=== PATIENT | male | born 1940 | race Caucasian/White ===

== ENCOUNTER 2017-09-21 09:34 | Day surgery (SDC) | payer MEDICARE ==
[~2017-09-21] VITALS: Ht 167.6 cm; Wt 81.8 kg
[~2017-09-21 09:34] MED LIST: HEPARIN 1,000 UNITS/ML, 10ML ONE; PROTAMINE SULFATE 10 MG/ML, 5ML ONE
[2017-09-21] MEDS ORDERED: SODIUM CHLORIDE 0.9% 1,000 ML IV SCH (10:19)
[2017-09-21] MEDS ORDERED: WARF5TAB7 PO (10:26)
[2017-09-21] MEDS ORDERED: FERR-46 PO (10:26)
[2017-09-21] MEDS ORDERED: MAGN400T7 PO (10:26)
[2017-09-21] MEDS ORDERED: AMLO5TAB2 PO (10:26)
[2017-09-21] MEDS ORDERED: CARV-39 PO (10:26)
[2017-09-21] MEDS ORDERED: CHOL100011 PO (10:26)
[2017-09-21] MEDS ORDERED: INSU100I34 SQ (10:26)
[2017-09-21] MEDS ORDERED: FURO20TA3 PO (10:26)
[2017-09-21] MEDS ORDERED: METO2.5T PO (10:26)
[2017-09-21] MEDS ORDERED: ATOR10TA9 PO (10:26)
[2017-09-21 10:36] VITALS: BP 133/66
[2017-09-21] MEDS ORDERED: FENTANYL PF 100 MCG/2ML ONE (12:47)
[2017-09-21] MEDS ORDERED: MIDAZOLAM 1 MG/ML, 2ML ONE (12:47)
[2017-09-21] MEDS ORDERED: ONDANSETRON 2MG/ML, 2ML ONE (13:19)
[2017-09-21] MEDS ORDERED: CEFAZOLIN 1,000 MG ONE (13:19)
[2017-09-21] MEDS ORDERED: PROPOFOL 10 MG/ML, 20ML ONE (13:19)
[2017-09-21] MEDS ORDERED: LABETALOL 5MG/ML, 20ML IV PRN (14:00)
[2017-09-21] MEDS ORDERED: METOPROLOL 1 MG/ML, 5ML IV PRN (14:00)
[2017-09-21] MEDS ORDERED: MIDAZOLAM 1 MG/ML, 2ML IV PRN (14:00)
[2017-09-21] MEDS ORDERED: ALBUTEROL SULFATE 2.5 MG/3 ML NPPB PRN (14:00)
[2017-09-21] MEDS ORDERED: HYDROcodone/APAP 7.5-325MG/15ML UDC PO PRN (14:00)
[2017-09-21] MEDS ORDERED: PROMETHAZINE 12.5 MG SUPP PR PRN (14:00)
[2017-09-21] MEDS ORDERED: FENTANYL PF 100 MCG/2ML IV PRN (14:00)
[2017-09-21] MEDS ORDERED: ONDANSETRON 2MG/ML, 2ML IVPush PRN (14:00)
[2017-09-21] MEDS ORDERED: OXYcodone 5 MG/5 ML ORAL.SOL UDC PO PRN (14:00)
[2017-09-21] MEDS ORDERED: HYDROmorphone 1 MG/ML, 1ML IV PRN (14:00)
[2017-09-21] MEDS ORDERED: hydrALAzine 20 MG/ML, 1ML IV PRN (14:00)
[2017-09-21] MEDS ORDERED: EPHEDRINE 50 MG/ML, 1ML IVPush PRN (14:00)
[2017-09-21] MEDS ORDERED: ACETAMINOPHEN 325 MG TABLET PO PRN (14:00)
[2017-09-21] MEDS ORDERED: ALBUTEROL/IPRATROPIUM 2.5MG/0.5MG, 3 ML NPPB PRN (14:00)
== END 2017-09-21 16:00 ==
LOC: OUT 09:34
PROVIDERS: ATTEND Surgery Vascular Surgery
DX: E11.22 Type 2 diabetes mellitus with diabetic chronic kidney disease (principal); I13.2 Hypertensive heart and chronic kidney disease with heart failure and with stage 5 chronic kidney disease, or end stage renal disease; I50.1 Left ventricular failure, unspecified; N18.6 End stage renal disease; J44.9 Chronic obstructive pulmonary disease, unspecified
CPT/HCPCS: 36415; 36821; 80047; 93005; J0690; J1644; J2250; J2405; J2704; J3010; J7030; J2720